=== PATIENT | female | born 1940 | race Two or more races ===

== ENCOUNTER 2017-04-25 09:27 | Emergency (ER) | payer MEDICARE, MEDICAID ==
[~2017-04-25] VITALS: Ht 160 cm; Wt 79.5 kg
[~2017-04-25 09:27] MED LIST: FENO160T8; LEVO100T9 PO; LISI30TA4
[2017-04-25] MEDS ORDERED: acetaminophen 325mg tablet PO STA (09:46)
[2017-04-25] MEDS ORDERED: normal saline 1000ML IV soln IV ONE (09:50)
[2017-04-25 10:43] LABS: PARTIAL THROMBOPLASTIN TIME 33 SECONDS (22-32); PROTHROMBIN TIME 10.5 SECONDS (9.0-12.0)
[2017-04-25 10:49] LABS: BASOPHILS % (AUTO) 0.6 % (0-1); EOSINOPHILS # (AUTO) 0.1 X10'3 (0-0.9); EOSINOPHILS % (AUTO) 1.8 % (0-6); HEMATOCRIT 35.7 % (35.0-45.0); HEMOGLOBIN 12.5 g/dl (12.0-16.0); LYMPHOCYTES # (AUTO) 1.7 X10'3 (1.1-4.8); LYMPHOCYTES % (AUTO) 39.7 % (21-51); MEAN CORPUSCULAR HEMOGLOBIN 32.3 PG (27.0-31.0); MEAN CORPUSCULAR HGB CONC 35.1 % (33.0-36.5); MEAN CORPUSCULAR VOLUME 92.2 FL (78-98); MEAN PLATELET VOLUME 8.1 FL (7.4-10.4); MONOCYTES # (AUTO) 0.5 X10'3 (0-0.9); NEUTROPHILS % (AUTO) 45.9 % (42-75); PLATELET COUNT 171 X10'3 (140-440); RED BLOOD COUNT 3.88 X10'6 (4.20-5.60); RED CELL DISTRIBUTION WIDTH 13.5 % (11.5-14.5); WHITE BLOOD COUNT 4.3 X10'3 (4.5-11.0)
[2017-04-25 10:56] LABS: ALANINE AMINOTRANSFERASE 29 U/L (12-78); ALBUMIN 3.5 G/DL (3.4-5.0); ALBUMIN/GLOBULIN RATIO 0.8 (1.1-1.5); ALKALINE PHOSPHATASE 68 IU/L (46-116); ANION GAP 11 (8-16); ASPARTATE AMINO TRANSFERASE 43 U/L (10-37); BILIRUBIN,TOTAL 0.3 MG/DL (0.1-1.0); BLOOD UREA NITROGEN 30 MG/DL (7-18); BUN/CREATININE RATIO 21.9 (6.6-38.0); CALCIUM 9.2 MG/DL (8.5-10.1); CHLORIDE 107 MMOL/L (99-107); CREATININE 1.37 MG/DL (0.40-0.90); GLUCOSE 93 MG/DL (70-104); MAGNESIUM 1.7 MG/DL (1.5-2.4); POTASSIUM 4.5 MMOL/L (3.5-5.1); SODIUM 139 MMOL/L (135-145); TOTAL CARBON DIOXIDE 21.1 MMOL/L (24-32); TOTAL PROTEIN 7.7 G/DL (6.4-8.2); eGFR 38 ML/MIN
[2017-04-25 10:57] LABS: C-REACTIVE PROTEIN 1.83 MG/DL (0.0-0.5)
[2017-04-25 11:54] LABS: CLARITY,URINE CLEAR (Clear); COLOR,URINE YELLOW (Yellow); GLUCOSE, URINE NEGATIVE (Neg); KETONES,URINE NEGATIVE (Neg); LEUKOCYTE ESTERASE ,URINE MODERATE (Neg); NITRITES, URINE NEGATIVE (Neg); OCCULT BLOOD,URINE NEGATIVE (Neg); PH,URINE 5.5 (4.8-8.0); PROTEIN,URINE NEGATIVE (Neg); UROBILINOGEN,URINE 0.2 E.U/dL (0.2-1.0)
[2017-04-25 11:56] LABS: UA COLLECTION TYPE CLN CATCH MIDSTREAM
[2017-04-25 12:04] LABS: SQUAMOUS EPITHELIAL CELL,UR FEW /LPF (FEW)
[2017-04-25 12:05] LABS: BACTERIA,URINE 2+ /HPF (Neg); RBC,URINE 0-2 /HPF (0-2); WBC,URINE 0-4 /HPF (0-4)
[2017-04-25 13:10] VITALS: BP 133/62
== END 2017-04-25 13:14 | disposition home or self-care (01) ==
LOC: ER 09:28
DX: R21 Rash and other nonspecific skin eruption (principal); E78.00 Pure hypercholesterolemia, unspecified; I10 Essential (primary) hypertension
CPT/HCPCS: 36415; 71045; 80053; 81001; 83605; 83735; 84145; 85025; 85610; 85651; 85730; 86140; 87040; 87088; 93005; 96360; 99285

== ENCOUNTER 2017-05-02 10:17 | Emergency (ER) | payer MEDICARE, MEDICAID ==
[~2017-05-02] VITALS: Ht 154.9 cm; Wt 74.0 kg
[2017-05-02] MEDS ORDERED: normal saline 1000ML IV soln IVB ONE (14:15)
[2017-05-02] MEDS ORDERED: ONDA8TAB13 PO (14:40)
[2017-05-02 15:19] VITALS: BP 133/61
== END 2017-05-02 15:25 | disposition home or self-care (01) ==
LOC: ER 10:18
DX: R19.7 Diarrhea, unspecified (principal); R51 Headache; R53.1 Weakness; E78.00 Pure hypercholesterolemia, unspecified; I10 Essential (primary) hypertension; Z88.8 Allergy status to other drugs, medicaments and biological substances; Z79.899 Other long term (current) drug therapy
CPT/HCPCS: 96360; 99284; J7030

== ENCOUNTER 2017-08-15 20:00 | Emergency (ER) | payer MEDICARE, MEDICAID ==
[~2017-08-15] VITALS: Ht 160 cm; Wt 75.0 kg
[~2017-08-15 20:00] MED LIST changes: +ONDA8TAB13 PO
[2017-08-15] MEDS ORDERED: CEPH500C5 PO (23:06)
[2017-08-15 23:35] VITALS: BP 156/66
== END 2017-08-15 23:20 | disposition home or self-care (01) ==
LOC: ER 20:01
DX: L03.115 Cellulitis of right lower limb (principal); E78.00 Pure hypercholesterolemia, unspecified; I10 Essential (primary) hypertension; Z88.8 Allergy status to other drugs, medicaments and biological substances; Z79.899 Other long term (current) drug therapy
CPT/HCPCS: 93971; 99284

== ENCOUNTER 2024-03-19 21:26 | Emergency (ER) | payer MEDICARE, MEDICAID ==
[~2024-03-19] VITALS: Ht 152.4 cm; Wt 81.8 kg
[~2024-03-19 21:26] MED LIST changes: +ONDA-245 PO; -ONDA8TAB13 PO
[2024-03-19 21:42] VITALS: BP 213/85; PULSE 81; RESP 16; TEMP 97.8; O2SAT 99
== END 2024-03-19 23:42 | disposition left against medical advice (07) ==
LOC: ER 21:27
DX: R11.0 Nausea (principal); R53.1 Weakness; R53.81 Other malaise; Z53.21 Procedure and treatment not carried out due to patient leaving prior to being seen by health care provider; Z88.8 Allergy status to other drugs, medicaments and biological substances